=== PATIENT | male | born 1985 | race African-American/Black ===

== ENCOUNTER 2016-04-09 04:10 | Emergency (ER) | payer MEDICAID, OTHER ==
[~2016-04-09] VITALS: Ht 175.3 cm; Wt 122.0 kg
[~2016-04-09 04:10] MED LIST: AMLO10TA80 PO; LOSA100T11 PO; NIFE30TA43 PO
[2016-04-09 06:19] VITALS: BP 143/83
== END 2016-04-09 06:23 | disposition home or self-care (01) ==
LOC: ER 04:15
DX: J06.9 Acute upper respiratory infection, unspecified (principal); I10 Essential (primary) hypertension; Z79.899 Other long term (current) drug therapy
CPT/HCPCS: 99283